=== PATIENT | male | born 1935 | race Caucasian/White ===

== ENCOUNTER 2018-11-07 16:00 | Emergency (ER) | payer MEDICARE, OTHER ==
--- NOTE | 2018-11-07 16:22 | EDM.PDOC ---
ED HPI GENERAL MEDICAL PROBLEM - General Chief Complaint: Lower Extremity Injury/Pain Stated Complaint: ANKLE INJURY Time Seen by Provider: 11/07/18 16:07 Source of Information: Reports: Patient History Limitations: Reports: No Limitations - History of Present Illness INITIAL COMMENTS - FREE TEXT/NARRATIVE: HISTORY AND PHYSICAL: History of present illness: Patient is an 83-year-old male presents to the ED today via EMS with concern of right ankle injury. Patient states the neighbors were out on the tractor and patient had a piece of equipment that was admitted way. Patient states he went to the equipment and was trying to move it and when he had picked up and lost his balance and twisted his right ankle. Patient states he did not completely fall to the ground and caught himself but does have right ankle injury and has not been able to walk on it. Patient states he called EMS for airway. Patient denies any loss of consciousness. Patient denies any other symptoms or concerns at this time. Patient denies any health history. Patient denies fever, chills, chest pain, shortness of breath, or cough. Denies headache, neck stiff ness, change in vision, syncope, or near syncope. Denies nausea, vomiting, abdominal pain, diarrhea, constipation, or dysuria. Has not noted any blood in urine or stool. Patient has been eating and drinking appropriately. Review of systems: As per history of present illness and below otherwise all systems reviewed and negative. Past medical history: As per history of present illness and as reviewed below otherwise noncontributory. Surgical history: As per history of present illness and as reviewed below otherwise noncontributory. Social history: See social history for further information Family history: As per history of present illness and as reviewed below otherwise noncontributory. Physical exam: General: Patient is alert, oriented, and in no acute distress. Patient sitting comfortably on exam table. HEENT: Atraumatic, normocephalic, pupils equal and reactive bilaterally, negative for conjunctival pallor or scleral icterus, mucous membranes moist, TMs normal bilaterally, throat clear, neck supple, nontender, trachea midline. No drooling or trismus noted. No meningeal signs. No hot potato voice noted. Lungs: Clear to auscultation, breath sounds equal bilaterally, chest nontender. Heart: S1S2, regular rate and rhythm without overt murmur Abdomen: Soft, nondistended, nontender. Negative for masses or hepatosplenomegaly. Negative for costovertebral tenderness. Pelvis: Stable nontender. Genitourinary: Deferred. Rectal: Deferred. Skin: Intact, warm, dry. No lesions or rashes noted. Extremities: Negative for cords or calf pain. Neurovascular unremarkable. DP/PT pulses intact bilaterally with capillary refill less than 2 seconds. Patient's right ankle is severely edematous and pain with range of motion. Patient does have full range of motion of the digits of the right lower extremity as well as the knee and hip. Patient full ROM of left lower extremity and bilateral upper extremities. No obvious deformities of the complete spine. Negative pain with palpation or point tenderness of the spinous processes. No step-offs or crepitus noted on palpation. Patient does have full range of motion of the spine without pain or difficulty. Neuro: Awake, alert, oriented. Cranial nerves II through XII unremarkable. Cerebellum unremarkable. Motor and sensory unremarkable throughout. Exam nonfocal. Notes: Dr. Montoya verbally involved in patient care. Discussed with patient the importance of proper ambulation with the ankle fracture. Patient states he has several walkers available to him at home and will use those at home but in the meantime would like to use crutches. Discussed the importance for follow-up with an orthopedic provider. Voices understanding and is agreeable to plan of care. Denies any further questions or concerns at this time. Diagnostics: CBC, CMP, UA, EKG, PT/INR, troponin, chest x-ray, ankle x-ray, tib/fib XR, foot XR Therapeutics: Posterior mold splint, crutches Prescription: Patient declines pain medications Impression: Distal fibula fracture, right Plan: 1. Rest, ice, elevate the affected extremity. You can apply ice 15 minutes on, 15 minutes off. Leave splint intact until follow up with orthopedics. 2. Tylenol and/or Ibuprofen as directed for pain management or discomfort. 3. Follow up with the Orthopedic provider as discussed. Call in the morning to make appointment. Return to the ED as needed and as discussed. Definitive disposition and diagnosis as appropriate pending reevaluation and review of above. Right Ankle Pain Score (Numeric/FACES): 3 - Related Data Allergies Allergy/AdvReac Type Severity Reaction Status Date / Time Sulfa (Sulfonamide Allergy Hives Verified 11/07/18 16:06 Antibiotics) Home Meds: Home Meds . [No Known Home Meds] 11/07/18 [History] Review of Systems - Review of Systems Review Of Systems: ROS reveals no pertinent complaints other than HPI. ED EXAM, GENERAL - Physical Exam Exam: See Below (See dictation) Course - Vital Signs Last Recorded V/S: Last Vital Signs Temp 36.6 C 11/07/18 16:07 Pulse 99 11/07/18 16:07 Resp 18 11/07/18 16:07 BP 159/104 H 11/07/18 16:07 Pulse Ox 98 11/07/18 16:07 Orthostatic Blood Pressure [ 167/83 Standing] Orthostatic Blood Pressure [ 155/133 Sitting] Orthostatic Blood Pressure [ 157/92 Supine] - Orders/Labs/Meds Orders: Active Orders 24 hr Category Date Time Status EKG Documentation Completion [RC] STAT Care 11/07/18 16:07 Active Orthostatic Vital Signs [RC] ASDIRECTED Care 11/07/18 16:08 Active UA RFX LUCIEN AND CULT IF INDIC [URIN] Stat Lab 11/07/18 16:07 Ordered DME for Discharge [COMM] Stat Oth 11/07/18 17:38 Ordered Labs: Laboratory Tests 11/07/18 11/07/18 11/07/18 Range/Units 16:20 16:20 16:20 WBC 7.71 (4.0-11.0) K/uL RBC 4.54 (4.50-5.90) M/uL Hgb 14.7 (13.0-17.0) g/dL Hct 42.1 (38.0-50.0) % MCV 92.7 (80.0-98.0) fL MCH 32.4 H (27.0-32.0) pg MCHC 34.9 (31.0-37.0) g/dL RDW Std Deviation 42.8 (28.0-62.0) fl RDW Coeff of Jacquelin 13 (11.0-15.0) % Plt Count 174 (150-400) K/uL MPV 9.70 (7.40-12.00) fL Neut % (Auto) 73.7 (48.0-80.0) % Lymph % (Auto) 18.0 (16.0-40.0) % Wayne % (Auto) 6.1 (0.0-15.0) % Eos % (Auto) 1.9 (0.0-7.0) % Baso % (Auto) 0.3 (0.0-1.5) % Neut # (Auto) 5.7 (1.4-5.7) K/uL Lymph # (Auto) 1.4 (0.6-2.4) K/uL Wayne # (Auto) 0.5 (0.0-0.8) K/uL Eos # (Auto) 0.2 (0.0-0.7) K/uL Baso # (Auto) 0.0 (0.0-0.1) K/uL Nucleated RBC % 0.0 /100WBC Nucleated RBCs # 0 K/uL INR 0.98 Sodium 141 (136-148) mmol/L Potassium 4.0 (3.5-5.1) mmol/L Chloride 105 (98-107) mmol/L Carbon Dioxide 23.4 (21.0-32.0) mmol/L BUN 22 H (7.0-18.0) mg/dL Creatinine 1.2 (0.8-1.3) mg/dL Est Cr Clr Drug Dosing 42.83 mL/min Estimated GFR (MDRD) 58.0 ml/min Glucose 143 H (74-106) mg/dL Calcium 9.1 (8.5-10.1) mg/dL Total Bilirubin 0.8 (0.2-1.0) mg/dL AST 37 (15-37) IU/L ALT 41 (14-63) IU/L Alkaline Phosphatase 109 (46-116) U/L Troponin I < 0.050 (0.000-0.056) ng/mL Total Protein 6.5 (6.4-8.2) g/dL Albumin 3.2 L (3.4-5.0) g/dL Globulin 3.3 (2.6-4.0) g/dL Albumin/Globulin Ratio 1.0 (0.9-1.6) Departure - Departure Time of Disposition: 18:06 Disposition: Home, Self-Care 01 Clinical Impression: Fracture of distal fibula Qualifiers: Encounter type: initial encounter Fracture type: closed Fracture morphology: unspecified fracture morphology Laterality: right Qualified Code(s): S82.831A - Other fracture of upper and lower end of right fibula, initial encounter for closed fracture - Discharge Information Instructions: Tibial and Fibular Fractures Referrals: PCP,Unknown [Primary Care Provider] - Forms: ED Department Discharge Additional Instructions: The following information is given to patients seen in the emergency department who are being discharged to home. This information is to outline your options for follow-up care. We provide all patients seen in our emergency department with a follow-up referral. The need for follow-up, as well as the timing and circumstances, are variable depending upon the specifics of your emergency department visit. If you don't have a primary care physician on staff, we will provide you with a referral. We always advise you to contact your personal physician following an emergency department visit to inform them of the circumstance of the visit and for follow-up with them and/or the need for any referrals to a consulting specialist. The emergency department will also refer you to a specialist when appropriate. This referral assures that you have the opportunity for follow-up care with a specialist. All of these measure are taken in an effort to provide you with optimal care, which includes your follow-up. Under all circumstances we always encourage you to contact your private physician who remains a resource for coordinating your care. When calling for follow-up care, please make the office aware that this follow-up is from your recent emergency room visit. If for any reason you are refused follow-up, please contact the [facility] Emergency Department at and asked to speak to the emergency department charge nurse. [facility] Primary Care [address] [place] [address] [facility] Specialty Care - Orthopedic Clinic Professional Building [address] [facility], [address] [place] [address] Dr Adams, Orthopedist [facility] [address] [place] [address] Dr Berry - Dr Loyola - Dr Baker [facility] at [facility] [address] [place] [address] [facility] [address] [place] [address] 1. Rest, ice, elevate the affected extremity. You can apply ice 15 minutes on, 15 minutes off. Leave splint intact until follow up with orthopedics. 2. Tylenol and/or Ibuprofen as directed for pain management or discomfort. 3. Follow up with the Orthopedic provider as discussed. Call in the morning to make appointment. Return to the ED as needed and as discussed. - My Orders Last 24 Hours: My Active Orders 11/07/18 16:07 EKG Documentation Completion [RC] STAT UA RFX LUCIEN AND CULT IF INDIC [URIN] Stat 11/07/18 16:08 Orthostatic Vital Signs [RC] ASDIRECTED 11/07/18 17:38 DME for Discharge [COMM] Stat - Assessment/Plan Last 24 Hours: My Active Orders 11/07/18 16:07 EKG Documentation Completion [RC] STAT UA RFX LUCIEN AND CULT IF INDIC [URIN] Stat 11/07/18 16:08 Orthostatic Vital Signs [RC] ASDIRECTED 11/07/18 17:38 DME for Discharge [COMM] Stat
[2018-11-07 17:02] LABS: CHLORIDE,CL 105 mmol/L (98-107); SODIUM,NA 141 mmol/L (136-148)
--- NOTE | 2018-11-07 17:44 | CR ---
INDICATION: Chest injury from fall TECHNIQUE: Chest radiograph 1 view COMPARISON: None FINDINGS: Moderate degradation of image quality noted due to body habitus. Mediastinum: The mediastinum is normal in appearance. The heart silhouette is normal in size and morphology. Lung: Both lungs are unremarkable in appearance. No sign of pleural effusion seen. No pneumothorax is identified. IMPRESSION: 1. No acute cardiopulmonary disease is seen. Dictated by: Balbir Deleon MD @ 11/07/2018 17:42:38 (Electronically Signed)
--- NOTE | 2018-11-07 17:50 | CR ---
INDICATION: Ankle injury from fall TECHNIQUE: Ankle radiograph 3 views right COMPARISON: None FINDINGS: Bone: There is a mildly displaced oblique fracture present in the lateral malleolus. Joint: Widening of the medial ankle mortise joint is noted measuring 7 mm. No significant ankle effusion is seen. Soft tissue: Moderate vascular soft tissue calcifications are noted. No radiopaque foreign bodies are seen. IMPRESSIONS: 1. There is a mildly displaced oblique fracture present in the lateral malleolus. 2. Widening of the medial ankle mortise joint is noted measuring 7 mm. Dictated by Balbir Deleon MD @ 11/07/2018 5:47:52 PM Dictated by: Balbir Deleon MD @ 11/07/2018 17:47:58 (Electronically Signed)
--- NOTE | 2018-11-07 17:52 | CR ---
INDICATION: Tibia injury from fall TECHNIQUE: Tibia-fibula radiograph 2 views right COMPARISON: None FINDINGS: Bone: There is a mildly displaced oblique fracture present in the lateral malleolus. The remainder of the visualized tibia and fibula are unremarkable. Joint: The visualized knee and ankle joints are unremarkable. No significant joint effusion is seen. Soft tissue: Unremarkable. No radiopaque foreign bodies are seen. IMPRESSION: 1. There is a mildly displaced oblique fracture present in the lateral malleolus. Dictated by Balbir Deleon MD @ 11/07/2018 5:50:27 PM Dictated by: Balbir Deleon MD @ 11/07/2018 17:50:34 (Electronically Signed)
--- NOTE | 2018-11-07 17:52 | CR ---
INDICATION: Foot injury from fall TECHNIQUE: Foot radiograph 2 views right COMPARISON: None FINDINGS: Bone: No acute fractures or aggressive bone lesions are identified in the foot. A fracture of the lateral malleolus is noted and described on ankle radiograph report. Joint: The visualized hindfoot, midfoot, and forefoot joints are unremarkable in appearance. No significant ankle effusion is seen. Soft tissue: Unremarkable. No radiopaque foreign bodies are seen. IMPRESSION: 1. No acute osseous injuries or abnormalities are noted. Dictated by: Balbir Deleon MD @ 11/07/2018 17:51:34 (Electronically Signed)
== END 2018-11-07 19:49 | disposition home or self-care (01) ==
LOC: MW.ED 16:00
DX: S82.831A Other fracture of upper and lower end of right fibula, initial encounter for closed fracture (principal); Z88.2 Allergy status to sulfonamides; X50.1XXA Overexertion from prolonged static or awkward postures, initial encounter
CPT/HCPCS: 36415; 71045; 71045-26; 73590-26-RT; 73590-RT; 73610-26-RT; 73610-RT; 73620-26-RT; 73620-RT; 80053; 84484; 85025; 85610; 93005; 99284-25

== ENCOUNTER 2024-04-22 12:37 | Inpatient (IN) | payer MEDICARE, OTHER ==
[2024-04-22] MEDS ORDERED: Sodium Chloride 0.9% 20 ML SDV IV PRN (12:43)
[2024-04-22] MEDS ORDERED: Sodium Chloride 0.9% 10 ML Syringe FLUSH PRN ×2 (12:43→12:44)
[2024-04-22] MEDS ORDERED: Sodium Chloride 0.9% 2.5 ML Syringe FLUSH PRN ×2 (12:43→12:44)
[2024-04-22] MEDS ORDERED: cefTRIAXone 1 GM Vial IV ONE (12:44)
[2024-04-22 13:12] LABS: BASOPHILS ABSOLUTE AUTO 0.01 K/uL (0.00-0.20); BASOPHILS PERCENT AUTO 0.1 % (0.0-1.0); HEMATOCRIT 51.1 % (42.0-52.0); HEMOGLOBIN 18.1 g/dL (14.0-18.0); IMMATURE GRAN ABSOLUTE AUTO 0.06 K/uL (0.00-0.05); IMMATURE GRAN PERCENT AUTO 0.4 % (0.0-0.4); LYMPHOCYTES ABSOLUTE AUTO 0.54 K/uL (1.00-4.80); LYMPHOCYTES PERCENT AUTO 3.7 % (24.0-44.0); MEAN CORPUSCULAR HEMOGLOBIN 31.3 pg (28.0-32.0); MEAN CORPUSCULAR HGB CONC 35.4 g/dL (32.0-36.0); MEAN CORPUSCULAR VOLUME 88.3 fL (83.0-99.0); MEAN PLATELET VOLUME 10.5 fL (9.4-12.4); MONOCYTES ABSOLUTE AUTO 0.89 K/uL (0.00-0.80); MONOCYTES PERCENT AUTO 6.2 % (0.0-8.0); NEUTROPHILS ABSOLUTE AUTO 12.94 K/uL (1.80-7.70); NEUTROPHILS PERCENT AUTO 89.6 % (41.0-71.0); PLATELET COUNT,PLT 182 K/uL (150-400); RED BLOOD CELL COUNT 5.79 M/uL (4.52-5.90); WHITE BLOOD CELL COUNT,WBC 14.44 K/uL (3.9-11.3)
[2024-04-22] MEDS: Sodium Chloride 0.9% 1,000 ML IV ONE ×2 (13:12)
[2024-04-22] MEDS: cefTRIAXone 1 GM in Sodium Chloride 0.9% 50 ML IV ONE (13:13)
[2024-04-22] MEDS: Diphtheria,Pertussis(Acell),Tetanus Vaccine 0.5 ML Syringe IM ONE (13:13)
[2024-04-22 14:07] LABS: INR 1.12 (0.86-1.11); PTT,PARTIAL THROMBOPLSTIN TIME 27.1 SEC (23.9-30.7)
[2024-04-22 14:25] LABS: LACTIC ACID 2.6 mmol/L (0.4-2.0)
[2024-04-22 14:30] LABS: ETHANOL BLOOD MEDICAL < 3.0 mg/dL; TSH ULTRASENSITIVE 2.21 uIU/mL (0.36-3.74)
[2024-04-22 14:34] LABS: A/G RATIO 0.7 (0.9-1.6); ALBUMIN 3.2 g/dL (3.4-5.0); CALCIUM 9.7 mg/dL (8.5-10.1); CARBON DIOXIDE,CO2 24.4 mmol/L (21.0-32.0); CREATININE 1.2 mg/dL (0.8-1.3); EST CRCL DRUG DOSING (CG) 37.73 mL/min; MAGNESIUM 2.6 mg/dL (1.8-2.4); PROTEIN TOTAL,TP 7.5 g/dL (6.4-8.2)
[2024-04-22] MEDS: VANCOmycin 1.5 GM in Sodium Chloride 0.9% 250 ML IV ONE (14:40)
[2024-04-22 16:45] LABS: APPEARANCE,URINE SLT CLOUDY; BILIRUBIN,URINE NEGATIVE (NEGATIVE); COLOR,URINE DARK YELLOW; GLUCOSE,URINE NEGATIVE (NEGATIVE); KETONES,URINE MODERATE mg/dL (NEGATIVE); PROTEIN,URINE 30 mg/dL (NEGATIVE)
[2024-04-22 16:46] LABS: BACTERIA,URINE RARE (NEGATIVE); EPITHELIAL CELLS,URINE RARE (NONE-FEW); LEUKOCYTE ESTERASE,URINE NEGATIVE (NEGATIVE); NITRITE,URINE NEGATIVE (NEGATIVE); OCCULT BLOOD,URINE MODERATE (NEGATIVE); SQUAMOUS EPITHELIAL CELLS,UR RARE; UROBILINOGEN,URINE 0.2 EU/dL (<2.0); WBC,URINE 0-1 (0-5/HPF)
[2024-04-22 16:47] LABS: AMORPHOUS SEDIMENT,URINE LIGHT (NEGATIVE); MUCUS,URINE MODERATE (NONE-MOD)
[2024-04-22] MEDS ORDERED: Ondansetron 4 MG/2 ML SDV IVPUSH PRN (17:57)
[2024-04-22] MEDS ORDERED: Melatonin 3 MG Tab PO PRN (17:57)
[2024-04-22] MEDS ORDERED: Acetaminophen 325 MG Tab PO PRN (17:57)
[2024-04-22] MEDS ORDERED: Acetaminophen 650 MG Supp RECTAL PRN (17:57)
[2024-04-22] MEDS ORDERED: Polyethylene Glycol 3350 Powder 17 GM Packet PO PRN (17:57)
[2024-04-22] MEDS: Lactated Ringers 1,000 ML IV SCH (19:36)
[2024-04-22] MEDS: Pantoprazole 40 MG in Sodium Chloride 0.9% 10 ML IVPUSH SCH (19:36)
[2024-04-23] MEDS: Lactated Ringers 1,000 ML IV SCH (04:32)
[2024-04-23 06:24] LABS: BASOPHILS ABSOLUTE AUTO 0.01 K/uL (0.00-0.20); BASOPHILS PERCENT AUTO 0.1 % (0.0-1.0); EOSINOPHILS ABSOLUTE AUTO 0.01 K/uL (0.00-0.45); EOSINOPHILS PERCENT AUTO 0.1 % (0.0-6.0); HEMOGLOBIN 15.5 g/dL (14.0-18.0); IMMATURE GRAN ABSOLUTE AUTO 0.04 K/uL (0.00-0.05); IMMATURE GRAN PERCENT AUTO 0.4 % (0.0-0.4); LYMPHOCYTES ABSOLUTE AUTO 0.89 K/uL (1.00-4.80); LYMPHOCYTES PERCENT AUTO 9.2 % (24.0-44.0); MEAN CORPUSCULAR HGB CONC 35.2 g/dL (32.0-36.0); MEAN CORPUSCULAR VOLUME 90.7 fL (83.0-99.0); MONOCYTES ABSOLUTE AUTO 1.17 K/uL (0.00-0.80); MONOCYTES PERCENT AUTO 12.1 % (0.0-8.0); NEUTROPHILS ABSOLUTE AUTO 7.52 K/uL (1.80-7.70); NEUTROPHILS PERCENT AUTO 78.1 % (41.0-71.0); PLATELET COUNT,PLT 148 K/uL (150-400); RED BLOOD CELL COUNT 4.85 M/uL (4.52-5.90); WHITE BLOOD CELL COUNT,WBC 9.64 K/uL (3.9-11.3)
[2024-04-23 06:57] LABS: CALCIUM 8.9 mg/dL (8.5-10.1); CARBON DIOXIDE,CO2 26.6 mmol/L (21.0-32.0); CREATININE 1.1 mg/dL (0.8-1.3); EST CRCL DRUG DOSING (CG) 41.16 mL/min; MAGNESIUM 2.4 mg/dL (1.8-2.4); PHOSPHORUS 2.6 mg/dL (2.6-4.7); POTASSIUM,K 4.1 mmol/L (3.5-5.1)
[2024-04-23] MEDS: Piperacillin/Tazobactam 4.5 GM in Sodium Chloride 0.9% 100 ML IV SCH (07:33)
[2024-04-23] MEDS ORDERED: cefTRIAXone 1 GM in Sodium Chloride 0.9% 50 ML IV SCH (09:00)
[2024-04-23] MEDS: VANCOmycin 1.5 GM in Sodium Chloride 0.9% 250 ML IV SCH (13:52)
[2024-04-24 09:06] LABS: BASOPHILS ABSOLUTE AUTO 0.02 K/uL (0.00-0.20); BASOPHILS PERCENT AUTO 0.3 % (0.0-1.0); EOSINOPHILS ABSOLUTE AUTO 0.02 K/uL (0.00-0.45); EOSINOPHILS PERCENT AUTO 0.3 % (0.0-6.0); HEMOGLOBIN 14.6 g/dL (14.0-18.0); IMMATURE GRAN ABSOLUTE AUTO 0.05 K/uL (0.00-0.05); IMMATURE GRAN PERCENT AUTO 0.7 % (0.0-0.4); LYMPHOCYTES ABSOLUTE AUTO 0.89 K/uL (1.00-4.80); LYMPHOCYTES PERCENT AUTO 12.3 % (24.0-44.0); MEAN CORPUSCULAR HEMOGLOBIN 31.5 pg (28.0-32.0); MEAN CORPUSCULAR HGB CONC 34.8 g/dL (32.0-36.0); MEAN CORPUSCULAR VOLUME 90.7 fL (83.0-99.0); MONOCYTES ABSOLUTE AUTO 0.66 K/uL (0.00-0.80); MONOCYTES PERCENT AUTO 9.1 % (0.0-8.0); NEUTROPHILS ABSOLUTE AUTO 5.61 K/uL (1.80-7.70); NEUTROPHILS PERCENT AUTO 77.3 % (41.0-71.0); PLATELET COUNT,PLT 144 K/uL (150-400); RED BLOOD CELL COUNT 4.63 M/uL (4.52-5.90); WHITE BLOOD CELL COUNT,WBC 7.25 K/uL (3.9-11.3)
[2024-04-24 09:41] LABS: A/G RATIO 0.7 (0.9-1.6); ALBUMIN 2.5 g/dL (3.4-5.0); BILIRUBIN TOTAL 1.6 mg/dL (0.2-1.0); CARBON DIOXIDE,CO2 28.6 mmol/L (21.0-32.0); CREATININE 1.1 mg/dL (0.8-1.3); EST CRCL DRUG DOSING (CG) 41.16 mL/min; POTASSIUM,K 3.5 mmol/L (3.5-5.1); PROTEIN TOTAL,TP 6.3 g/dL (6.4-8.2)
[2024-04-24] MEDS: Potassium Chloride 20 MEQ Tab.ER PO ONE (10:36)
[2024-04-24] MEDS: Sodium Chloride 0.9% 1,000 ML IV SCH (11:04)
[2024-04-24] MEDS: Metoprolol Tartrate 5 MG/5 ML SDV IVPUSH PRN (16:20)
[2024-04-24] MEDS ORDERED: 50% Dextrose in Water 50 ML Syringe IVPUSH PRN (18:42)
[2024-04-24] MEDS ORDERED: Glucagon,Human Recombinant 1 MG Vial IM PRN (18:42)
[2024-04-24 19:03] LABS: HEMOGLOBIN A1C 6.3 %
[2024-04-24] MEDS: Insulin Aspart 100 Units/ML 3 ML Pen SUBCUT SCH (20:02)
[2024-04-25 05:44] LABS: BASOPHILS ABSOLUTE AUTO 0.01 K/uL (0.00-0.20); BASOPHILS PERCENT AUTO 0.2 % (0.0-1.0); EOSINOPHILS ABSOLUTE AUTO 0.05 K/uL (0.00-0.45); EOSINOPHILS PERCENT AUTO 0.9 % (0.0-6.0); HEMATOCRIT 35.8 % (42.0-52.0); HEMOGLOBIN 12.4 g/dL (14.0-18.0); IMMATURE GRAN ABSOLUTE AUTO 0.11 K/uL (0.00-0.05); IMMATURE GRAN PERCENT AUTO 1.9 % (0.0-0.4); LYMPHOCYTES ABSOLUTE AUTO 1.07 K/uL (1.00-4.80); LYMPHOCYTES PERCENT AUTO 18.8 % (24.0-44.0); MEAN CORPUSCULAR HEMOGLOBIN 31.3 pg (28.0-32.0); MEAN CORPUSCULAR HGB CONC 34.6 g/dL (32.0-36.0); MEAN CORPUSCULAR VOLUME 90.4 fL (83.0-99.0); MEAN PLATELET VOLUME 9.6 fL (9.4-12.4); MONOCYTES ABSOLUTE AUTO 0.66 K/uL (0.00-0.80); MONOCYTES PERCENT AUTO 11.6 % (0.0-8.0); NEUTROPHILS ABSOLUTE AUTO 3.78 K/uL (1.80-7.70); NEUTROPHILS PERCENT AUTO 66.6 % (41.0-71.0); PLATELET COUNT,PLT 127 K/uL (150-400); RED BLOOD CELL COUNT 3.96 M/uL (4.52-5.90); WHITE BLOOD CELL COUNT,WBC 5.68 K/uL (3.9-11.3)
[2024-04-25 06:37] LABS: A/G RATIO 0.7 (0.9-1.6); ALBUMIN 2.1 g/dL (3.4-5.0); CALCIUM 8.2 mg/dL (8.5-10.1); CARBON DIOXIDE,CO2 24.7 mmol/L (21.0-32.0); EST CRCL DRUG DOSING (CG) 45.27 mL/min; POTASSIUM,K 3.7 mmol/L (3.5-5.1); PROTEIN TOTAL,TP 5.3 g/dL (6.4-8.2)
[2024-04-25] MEDS: VANCOmycin 1 GM in Sodium Chloride 0.9% 250 ML IV SCH (13:56)
[2024-04-26 05:57] LABS: BASOPHILS ABSOLUTE AUTO 0.02 K/uL (0.00-0.20); BASOPHILS PERCENT AUTO 0.3 % (0.0-1.0); EOSINOPHILS ABSOLUTE AUTO 0.17 K/uL (0.00-0.45); EOSINOPHILS PERCENT AUTO 2.6 % (0.0-6.0); HEMATOCRIT 34.8 % (42.0-52.0); HEMOGLOBIN 12.3 g/dL (14.0-18.0); IMMATURE GRAN ABSOLUTE AUTO 0.25 K/uL (0.00-0.05); IMMATURE GRAN PERCENT AUTO 3.8 % (0.0-0.4); LYMPHOCYTES ABSOLUTE AUTO 1.41 K/uL (1.00-4.80); LYMPHOCYTES PERCENT AUTO 21.2 % (24.0-44.0); MEAN CORPUSCULAR HEMOGLOBIN 31.8 pg (28.0-32.0); MEAN CORPUSCULAR HGB CONC 35.3 g/dL (32.0-36.0); MEAN CORPUSCULAR VOLUME 89.9 fL (83.0-99.0); MEAN PLATELET VOLUME 9.9 fL (9.4-12.4); MONOCYTES ABSOLUTE AUTO 0.53 K/uL (0.00-0.80); NEUTROPHILS ABSOLUTE AUTO 4.27 K/uL (1.80-7.70); NEUTROPHILS PERCENT AUTO 64.1 % (41.0-71.0); PLATELET COUNT,PLT 138 K/uL (150-400); RED BLOOD CELL COUNT 3.87 M/uL (4.52-5.90); WHITE BLOOD CELL COUNT,WBC 6.65 K/uL (3.9-11.3)
[2024-04-26 06:23] LABS: A/G RATIO 0.6 (0.9-1.6); BILIRUBIN TOTAL 0.9 mg/dL (0.2-1.0); CALCIUM 8.2 mg/dL (8.5-10.1); CARBON DIOXIDE,CO2 24.3 mmol/L (21.0-32.0); EST CRCL DRUG DOSING (CG) 44.42 mL/min; POTASSIUM,K 3.2 mmol/L (3.5-5.1); PROTEIN TOTAL,TP 5.2 g/dL (6.4-8.2)
[2024-04-26] MEDS: Potassium Chloride 20 MEQ Tab.ER PO ONE (08:48)
[2024-04-27 06:12] LABS: BASOPHILS ABSOLUTE AUTO 0.02 K/uL (0.00-0.20); BASOPHILS PERCENT AUTO 0.3 % (0.0-1.0); EOSINOPHILS PERCENT AUTO 4.1 % (0.0-6.0); HEMATOCRIT 35.7 % (42.0-52.0); HEMOGLOBIN 12.5 g/dL (14.0-18.0); IMMATURE GRAN PERCENT AUTO 4.1 % (0.0-0.4); LYMPHOCYTES ABSOLUTE AUTO 1.46 K/uL (1.00-4.80); LYMPHOCYTES PERCENT AUTO 19.8 % (24.0-44.0); MEAN CORPUSCULAR HEMOGLOBIN 31.4 pg (28.0-32.0); MEAN CORPUSCULAR VOLUME 89.7 fL (83.0-99.0); MEAN PLATELET VOLUME 10.2 fL (9.4-12.4); MONOCYTES ABSOLUTE AUTO 0.56 K/uL (0.00-0.80); MONOCYTES PERCENT AUTO 7.6 % (0.0-8.0); NEUTROPHILS ABSOLUTE AUTO 4.72 K/uL (1.80-7.70); NEUTROPHILS PERCENT AUTO 64.1 % (41.0-71.0); PLATELET COUNT,PLT 141 K/uL (150-400); RED BLOOD CELL COUNT 3.98 M/uL (4.52-5.90); WHITE BLOOD CELL COUNT,WBC 7.36 K/uL (3.9-11.3)
[2024-04-27 06:38] LABS: A/G RATIO 0.6 (0.9-1.6); ALBUMIN 2.1 g/dL (3.4-5.0); BILIRUBIN TOTAL 1.2 mg/dL (0.2-1.0); CALCIUM 8.5 mg/dL (8.5-10.1); CARBON DIOXIDE,CO2 25.7 mmol/L (21.0-32.0); EST CRCL DRUG DOSING (CG) 44.42 mL/min; POTASSIUM,K 3.3 mmol/L (3.5-5.1); PROTEIN TOTAL,TP 5.4 g/dL (6.4-8.2)
[2024-04-28 08:25] LABS: BASOPHILS ABSOLUTE AUTO 0.02 K/uL (0.00-0.20); BASOPHILS PERCENT AUTO 0.2 % (0.0-1.0); EOSINOPHILS ABSOLUTE AUTO 0.33 K/uL (0.00-0.45); HEMOGLOBIN 12.4 g/dL (14.0-18.0); IMMATURE GRAN ABSOLUTE AUTO 0.35 K/uL (0.00-0.05); IMMATURE GRAN PERCENT AUTO 4.3 % (0.0-0.4); MEAN CORPUSCULAR HEMOGLOBIN 31.4 pg (28.0-32.0); MEAN CORPUSCULAR HGB CONC 35.4 g/dL (32.0-36.0); MEAN CORPUSCULAR VOLUME 88.6 fL (83.0-99.0); MEAN PLATELET VOLUME 10.5 fL (9.4-12.4); MONOCYTES ABSOLUTE AUTO 0.61 K/uL (0.00-0.80); MONOCYTES PERCENT AUTO 7.5 % (0.0-8.0); NEUTROPHILS ABSOLUTE AUTO 5.54 K/uL (1.80-7.70); PLATELET COUNT,PLT 167 K/uL (150-400); RED BLOOD CELL COUNT 3.95 M/uL (4.52-5.90); WHITE BLOOD CELL COUNT,WBC 8.15 K/uL (3.9-11.3)
[2024-04-28 08:37] LABS: A/G RATIO 0.6 (0.9-1.6); ALBUMIN 2.1 g/dL (3.4-5.0); BILIRUBIN TOTAL 1.3 mg/dL (0.2-1.0); CALCIUM 8.4 mg/dL (8.5-10.1); CARBON DIOXIDE,CO2 25.8 mmol/L (21.0-32.0); EST CRCL DRUG DOSING (CG) 44.42 mL/min; POTASSIUM,K 3.3 mmol/L (3.5-5.1); PROTEIN TOTAL,TP 5.5 g/dL (6.4-8.2)
[2024-04-28] MEDS: Potassium Chloride 20 MEQ Tab.ER PO ONE ×2 (09:31→12:40)
[2024-04-28] MEDS ORDERED: Albuterol/Ipratropium 3.0-0.5 MG/3 ML Neb Soln NEB PRN (19:52)
[2024-04-29 06:03] LABS: BASOPHILS ABSOLUTE AUTO 0.03 K/uL (0.00-0.20); BASOPHILS PERCENT AUTO 0.3 % (0.0-1.0); EOSINOPHILS ABSOLUTE AUTO 0.29 K/uL (0.00-0.45); HEMATOCRIT 35.1 % (42.0-52.0); HEMOGLOBIN 12.4 g/dL (14.0-18.0); IMMATURE GRAN ABSOLUTE AUTO 0.29 K/uL (0.00-0.05); LYMPHOCYTES ABSOLUTE AUTO 1.44 K/uL (1.00-4.80); LYMPHOCYTES PERCENT AUTO 14.9 % (24.0-44.0); MEAN CORPUSCULAR HEMOGLOBIN 31.2 pg (28.0-32.0); MEAN CORPUSCULAR HGB CONC 35.3 g/dL (32.0-36.0); MEAN CORPUSCULAR VOLUME 88.2 fL (83.0-99.0); MEAN PLATELET VOLUME 9.5 fL (9.4-12.4); MONOCYTES ABSOLUTE AUTO 0.83 K/uL (0.00-0.80); MONOCYTES PERCENT AUTO 8.6 % (0.0-8.0); NEUTROPHILS ABSOLUTE AUTO 6.81 K/uL (1.80-7.70); NEUTROPHILS PERCENT AUTO 70.2 % (41.0-71.0); PLATELET COUNT,PLT 183 K/uL (150-400); RED BLOOD CELL COUNT 3.98 M/uL (4.52-5.90); WHITE BLOOD CELL COUNT,WBC 9.69 K/uL (3.9-11.3)
[2024-04-29 06:45] LABS: A/G RATIO 0.6 (0.9-1.6); ALBUMIN 2.1 g/dL (3.4-5.0); BILIRUBIN TOTAL 1.1 mg/dL (0.2-1.0); CALCIUM 8.5 mg/dL (8.5-10.1); CARBON DIOXIDE,CO2 25.8 mmol/L (21.0-32.0); EST CRCL DRUG DOSING (CG) 44.42 mL/min; POTASSIUM,K 3.8 mmol/L (3.5-5.1); PROTEIN TOTAL,TP 5.8 g/dL (6.4-8.2)
[2024-04-29] MEDS: Loperamide 2 MG Cap PO SCH (12:43)
[2024-04-29] MEDS: Bacitracin Oint 1 GM U/D Packet TOP SCH (12:44)
[2024-04-29] MEDS: Enoxaparin 40 MG/0.4 ML Syringe SUBCUT SCH (20:13)
[2024-04-30 05:53] LABS: BASOPHILS ABSOLUTE AUTO 0.03 K/uL (0.00-0.20); BASOPHILS PERCENT AUTO 0.3 % (0.0-1.0); EOSINOPHILS ABSOLUTE AUTO 0.22 K/uL (0.00-0.45); EOSINOPHILS PERCENT AUTO 2.1 % (0.0-6.0); HEMATOCRIT 36.4 % (42.0-52.0); HEMOGLOBIN 12.7 g/dL (14.0-18.0); IMMATURE GRAN ABSOLUTE AUTO 0.28 K/uL (0.00-0.05); IMMATURE GRAN PERCENT AUTO 2.7 % (0.0-0.4); LYMPHOCYTES ABSOLUTE AUTO 1.61 K/uL (1.00-4.80); LYMPHOCYTES PERCENT AUTO 15.5 % (24.0-44.0); MEAN CORPUSCULAR HEMOGLOBIN 31.3 pg (28.0-32.0); MEAN CORPUSCULAR HGB CONC 34.9 g/dL (32.0-36.0); MEAN CORPUSCULAR VOLUME 89.7 fL (83.0-99.0); MEAN PLATELET VOLUME 9.8 fL (9.4-12.4); MONOCYTES ABSOLUTE AUTO 0.85 K/uL (0.00-0.80); MONOCYTES PERCENT AUTO 8.2 % (0.0-8.0); NEUTROPHILS ABSOLUTE AUTO 7.43 K/uL (1.80-7.70); NEUTROPHILS PERCENT AUTO 71.2 % (41.0-71.0); PLATELET COUNT,PLT 176 K/uL (150-400); RED BLOOD CELL COUNT 4.06 M/uL (4.52-5.90); WHITE BLOOD CELL COUNT,WBC 10.42 K/uL (3.9-11.3)
[2024-04-30 06:17] LABS: A/G RATIO 0.6 (0.9-1.6); ALBUMIN 2.2 g/dL (3.4-5.0); BILIRUBIN TOTAL 0.9 mg/dL (0.2-1.0); CALCIUM 8.6 mg/dL (8.5-10.1); CARBON DIOXIDE,CO2 25.1 mmol/L (21.0-32.0); EST CRCL DRUG DOSING (CG) 44.42 mL/min; POTASSIUM,K 3.8 mmol/L (3.5-5.1); PROTEIN TOTAL,TP 5.9 g/dL (6.4-8.2)
[2024-04-30] MEDS ORDERED: Loperamide 2 MG Cap PO PRN (09:58)
[2024-05-01 05:50] LABS: BASOPHILS ABSOLUTE AUTO 0.02 K/uL (0.00-0.20); BASOPHILS PERCENT AUTO 0.2 % (0.0-1.0); EOSINOPHILS ABSOLUTE AUTO 0.23 K/uL (0.00-0.45); EOSINOPHILS PERCENT AUTO 1.9 % (0.0-6.0); HEMATOCRIT 36.2 % (42.0-52.0); HEMOGLOBIN 12.4 g/dL (14.0-18.0); IMMATURE GRAN ABSOLUTE AUTO 0.17 K/uL (0.00-0.05); IMMATURE GRAN PERCENT AUTO 1.4 % (0.0-0.4); LYMPHOCYTES PERCENT AUTO 12.9 % (24.0-44.0); MEAN CORPUSCULAR HEMOGLOBIN 30.8 pg (28.0-32.0); MEAN CORPUSCULAR HGB CONC 34.3 g/dL (32.0-36.0); MEAN CORPUSCULAR VOLUME 89.8 fL (83.0-99.0); MEAN PLATELET VOLUME 9.9 fL (9.4-12.4); MONOCYTES ABSOLUTE AUTO 1.06 K/uL (0.00-0.80); MONOCYTES PERCENT AUTO 8.5 % (0.0-8.0); NEUTROPHILS ABSOLUTE AUTO 9.33 K/uL (1.80-7.70); NEUTROPHILS PERCENT AUTO 75.1 % (41.0-71.0); PLATELET COUNT,PLT 206 K/uL (150-400); RED BLOOD CELL COUNT 4.03 M/uL (4.52-5.90); WHITE BLOOD CELL COUNT,WBC 12.41 K/uL (3.9-11.3)
[2024-05-01 06:18] LABS: A/G RATIO 0.5 (0.9-1.6); ALBUMIN 2.1 g/dL (3.4-5.0); CALCIUM 8.7 mg/dL (8.5-10.1); CARBON DIOXIDE,CO2 26.8 mmol/L (21.0-32.0); CREATININE 1.1 mg/dL (0.8-1.3); EST CRCL DRUG DOSING (CG) 40.38 mL/min; POTASSIUM,K 3.9 mmol/L (3.5-5.1); PROTEIN TOTAL,TP 6.1 g/dL (6.4-8.2)
[2024-05-01] MEDS: Loperamide 2 MG Cap PO SCH (10:16)
[2024-05-01] MEDS: Bacitracin Oint 1 GM U/D Packet TOP PRN (10:17)
== END 2024-05-04 11:21 | DRG 558 ==
LOC: MW.ED 12:37 → MW.MS 17:24
PROVIDERS: ADMIT Family Medicine; ATTEND Family Medicine
DX: M62.82 Rhabdomyolysis (principal); E86.0 Dehydration; Z88.8 Allergy status to other drugs, medicaments and biological substances; Z66 Do not resuscitate; L98.9 Disorder of the skin and subcutaneous tissue, unspecified; T14.8XXA Other injury of unspecified body region, initial encounter; W19.XXXA Unspecified fall, initial encounter; Z88.2 Allergy status to sulfonamides
CPT/HCPCS: 36415; 70450; 71250; 72125; 73562 ×2; 74176; 80053; 80307; 81001; 82550; 83605; 83690; 83735; 83880; 84443; 84484 ×2; 85025; 85610; 85730; 87040 ×2; 87077 ×2; 87086; 87186 ×2; 90471; 90715; 96365; 96366; 96367; 99285; J0696; J3371; J3490; J7030 ×2; J7050; 80048; 80202; 82947; 83036; 84100; 93005; 97116-GP; 97162-GP; 97164-GP; 97165-GO; 97168-GO; 97530-GP; 99222; 99231; 99232; 99238; 99284; A9270-GY; J1650; J1815-GY; J2470; J2543; J7120

== ENCOUNTER 2024-05-12 22:15 | Inpatient (IN) | payer MEDICARE, OTHER ==
[2024-05-12] MEDS ORDERED: Sodium Chloride 0.9% 10 ML Syringe FLUSH PRN (22:32)
[2024-05-12] MEDS ORDERED: Sodium Chloride 0.9% 2.5 ML Syringe FLUSH PRN (22:32)
[2024-05-12 22:41] LABS: BASOPHILS ABSOLUTE AUTO 0.01 K/uL (0.00-0.20); BASOPHILS PERCENT AUTO 0.1 % (0.0-1.0); EOSINOPHILS ABSOLUTE AUTO 0.01 K/uL (0.00-0.45); EOSINOPHILS PERCENT AUTO 0.1 % (0.0-6.0); HEMATOCRIT 44.5 % (42.0-52.0); HEMOGLOBIN 15.5 g/dL (14.0-18.0); IMMATURE GRAN ABSOLUTE AUTO 0.02 K/uL (0.00-0.05); IMMATURE GRAN PERCENT AUTO 0.2 % (0.0-0.4); LYMPHOCYTES ABSOLUTE AUTO 0.65 K/uL (1.00-4.80); LYMPHOCYTES PERCENT AUTO 7.1 % (24.0-44.0); MEAN CORPUSCULAR HEMOGLOBIN 31.7 pg (28.0-32.0); MEAN CORPUSCULAR HGB CONC 34.8 g/dL (32.0-36.0); MEAN PLATELET VOLUME 9.1 fL (9.4-12.4); MONOCYTES ABSOLUTE AUTO 0.52 K/uL (0.00-0.80); MONOCYTES PERCENT AUTO 5.7 % (0.0-8.0); NEUTROPHILS ABSOLUTE AUTO 7.91 K/uL (1.80-7.70); NEUTROPHILS PERCENT AUTO 86.8 % (41.0-71.0); PLATELET COUNT,PLT 296 K/uL (150-400); RED BLOOD CELL COUNT 4.89 M/uL (4.52-5.90); WHITE BLOOD CELL COUNT,WBC 9.12 K/uL (3.9-11.3)
[2024-05-12 22:58] LABS: BLOOD UREA NITROGEN,BUN 31 mg/dL (7.0-18.0); CALCIUM 9.3 mg/dL (8.5-10.1); CARBON DIOXIDE,CO2 24.1 mmol/L (21.0-32.0); CHLORIDE,CL 98 mmol/L (98-107); CREATININE 1.7 mg/dL (0.8-1.3); GLUCOSE RANDOM 221 mg/dL (74-106); POTASSIUM,K 4.4 mmol/L (3.5-5.1); PRO B-TYPE NATRIUR PEPT,BNPPRO 136 pg/mL (0-450); SODIUM,NA 139 mmol/L (136-148)
[2024-05-12 23:03] LABS: ESTIMATED GFR 38 mL/min (>60)
[2024-05-12] MEDS: Sodium Chloride 0.9% 1,000 ML IV ONE (23:15)
[2024-05-12] MEDS: Piperacillin/Tazobactam 4.5 GM in Sodium Chloride 0.9% 100 ML IV ONE (23:22)
[2024-05-12 23:23] LABS: A/G RATIO 0.6 (0.9-1.6); BILIRUBIN DIRECT 0.3 mg/dL (0.0-0.5); BILIRUBIN INDIRECT 1.1; BILIRUBIN TOTAL 1.4 mg/dL (0.2-1.0)
[2024-05-12] MEDS: Ondansetron 4 MG/2 ML SDV IVPUSH ONE (23:53)
[2024-05-13] MEDS: Sodium Chloride 0.9% 1,000 ML IV SCH ×3 (00:01→13:49)
[2024-05-13] MEDS: Albuterol/Ipratropium 3.0-0.5 MG/3 ML Neb Soln NEB ONE (00:02)
[2024-05-13] MEDS: VANCOmycin 1.5 GM in Sodium Chloride 0.9% 250 ML IV ONE (00:28)
[2024-05-13 00:32] LABS: APPEARANCE,URINE CLEAR; BILIRUBIN,URINE NEGATIVE (NEGATIVE); COLOR,URINE YELLOW; GLUCOSE,URINE NEGATIVE (NEGATIVE); KETONES,URINE NEGATIVE (NEGATIVE); LEUKOCYTE ESTERASE,URINE NEGATIVE (NEGATIVE); NITRITE,URINE NEGATIVE (NEGATIVE); OCCULT BLOOD,URINE TRACE-INTACT (NEGATIVE); PROTEIN,URINE TRACE mg/dL (NEGATIVE); UROBILINOGEN,URINE 0.2 EU/dL (<2.0)
[2024-05-13 00:43] LABS: BACTERIA,URINE FEW (NEGATIVE); EPITHELIAL CELLS,URINE OCCASIONAL (NONE-FEW); HYALINE CASTS,URINE 0-2 (0-2/LPF)
[2024-05-13] MEDS: Sodium Chloride 0.9% 1,000 ML IV ONE (03:19)
[2024-05-13] MEDS ORDERED: Acetaminophen 325 MG Tab PO PRN (03:29)
[2024-05-13] MEDS: Azithromycin 500 MG in Sodium Chloride 0.9% 250 ML IV SCH (03:57)
[2024-05-13] MEDS ORDERED: Piperacillin/Tazobactam 4.5 GM in Sodium Chloride 0.9% 100 ML IV SCH (04:00)
[2024-05-13] MEDS ORDERED: Piperacillin/Tazobactam 3.375 GM in Sodium Chloride 0.9% 100 ML IV SCH (06:00)
[2024-05-13] MEDS: Albuterol/Ipratropium 3.0-0.5 MG/3 ML Neb Soln NEB SCH (06:43)
[2024-05-13] MEDS: Piperacillin/Tazobactam 4.5 GM in Sodium Chloride 0.9% 100 ML IV SCH (06:45)
[2024-05-13 07:28] LABS: CORONAVIRUS COVID-19 NAA NEGATIVE (NEGATIVE); INFLUENZA A NAA NEGATIVE (NEGATIVE); INFLUENZA B NAA NEGATIVE (NEGATIVE)
[2024-05-13 07:52] LABS: HEMATOCRIT 36.3 % (42.0-52.0); HEMOGLOBIN 12.3 g/dL (14.0-18.0); MEAN CORPUSCULAR HEMOGLOBIN 31.7 pg (28.0-32.0); MEAN CORPUSCULAR HGB CONC 33.9 g/dL (32.0-36.0); MEAN CORPUSCULAR VOLUME 93.6 fL (83.0-99.0); MEAN PLATELET VOLUME 9.1 fL (9.4-12.4); PLATELET COUNT,PLT 206 K/uL (150-400); RED BLOOD CELL COUNT 3.88 M/uL (4.52-5.90); WHITE BLOOD CELL COUNT,WBC 11.29 K/uL (3.9-11.3)
[2024-05-13 08:10] LABS: CALCIUM 8.2 mg/dL (8.5-10.1); CARBON DIOXIDE,CO2 22.3 mmol/L (21.0-32.0); CREATININE 1.8 mg/dL (0.8-1.3); EST CRCL DRUG DOSING (CG) 21.91 mL/min
[2024-05-13 08:41] LABS: LYMPHOCYTES ABSOLUTE MAN 1.13 K/uL (1.00-4.80); LYMPHOCYTES PERCENT MAN 10 % (24-44); MONOCYTES ABSOLUTE MAN 0.68 K/uL (0.00-0.80); MONOCYTES PERCENT MAN 6 % (0-8)
[2024-05-13 08:42] LABS: BAND ABSOLUTE MAN 1.47; BAND PERCENT MAN 13 %; EOSINOPHILS ABSOLUTE MAN 0.23 K/uL (0.00-0.45); EOSINOPHILS PERCENT MAN 2 % (0-6); SEG NEUTROPHILS ABSOLUTE MAN 7.79 K/uL (1.80-7.70); SEG NEUTROPHILS PERCENT MAN 69 % (41-71)
[2024-05-13] MEDS: Heparin Sodium 5,000 Units/ML Vial SUBCUT SCH (11:36)
[2024-05-13] MEDS: VANCOmycin 1 GM in Sodium Chloride 0.9% 250 ML IV SCH (22:24)
[2024-05-14 02:11] LABS: HEMATOCRIT 30.3 % (42.0-52.0); HEMOGLOBIN 10.5 g/dL (14.0-18.0); MEAN CORPUSCULAR HEMOGLOBIN 31.8 pg (28.0-32.0); MEAN CORPUSCULAR HGB CONC 34.7 g/dL (32.0-36.0); MEAN CORPUSCULAR VOLUME 91.8 fL (83.0-99.0); MEAN PLATELET VOLUME 9.2 fL (9.4-12.4); PLATELET COUNT,PLT 172 K/uL (150-400); WHITE BLOOD CELL COUNT,WBC 10.19 K/uL (3.9-11.3)
[2024-05-14 02:44] LABS: A/G RATIO 0.6 (0.9-1.6); ALBUMIN 1.9 g/dL (3.4-5.0); BILIRUBIN TOTAL 0.9 mg/dL (0.2-1.0); CALCIUM 7.6 mg/dL (8.5-10.1); CARBON DIOXIDE,CO2 24.7 mmol/L (21.0-32.0); CREATININE 1.5 mg/dL (0.8-1.3); EST CRCL DRUG DOSING (CG) 26.29 mL/min; POTASSIUM,K 3.3 mmol/L (3.5-5.1); PROTEIN TOTAL,TP 5.3 g/dL (6.4-8.2)
[2024-05-14] MEDS: Potassium Chloride 20 MEQ Tab.ER PO ONE (09:13)
[2024-05-14] MEDS: Ondansetron 4 MG/2 ML SDV IVPUSH PRN (16:45)
[2024-05-14] MEDS ORDERED: Benzonatate 100 MG Cap PO PRN (17:33)
[2024-05-14 21:02] LABS: BORDETELLA PARAPERT IS1001 Not Detected (Not Detected)
[2024-05-15] MEDS: cefTRIAXone 1 GM in Sodium Chloride 0.9% 50 ML IV SCH (10:47)
[2024-05-15 11:43] LABS: BASOPHILS ABSOLUTE AUTO 0.03 K/uL (0.00-0.20); BASOPHILS PERCENT AUTO 0.3 % (0.0-1.0); EOSINOPHILS ABSOLUTE AUTO 0.79 K/uL (0.00-0.45); EOSINOPHILS PERCENT AUTO 9.1 % (0.0-6.0); HEMATOCRIT 33.6 % (42.0-52.0); HEMOGLOBIN 11.7 g/dL (14.0-18.0); IMMATURE GRAN ABSOLUTE AUTO 0.16 K/uL (0.00-0.05); IMMATURE GRAN PERCENT AUTO 1.8 % (0.0-0.4); LYMPHOCYTES ABSOLUTE AUTO 0.88 K/uL (1.00-4.80); LYMPHOCYTES PERCENT AUTO 10.1 % (24.0-44.0); MEAN CORPUSCULAR HEMOGLOBIN 31.7 pg (28.0-32.0); MEAN CORPUSCULAR HGB CONC 34.8 g/dL (32.0-36.0); MEAN CORPUSCULAR VOLUME 91.1 fL (83.0-99.0); MEAN PLATELET VOLUME 9.2 fL (9.4-12.4); MONOCYTES ABSOLUTE AUTO 0.52 K/uL (0.00-0.80); NEUTROPHILS ABSOLUTE AUTO 6.31 K/uL (1.80-7.70); NEUTROPHILS PERCENT AUTO 72.7 % (41.0-71.0); PLATELET COUNT,PLT 167 K/uL (150-400); RED BLOOD CELL COUNT 3.69 M/uL (4.52-5.90); WHITE BLOOD CELL COUNT,WBC 8.69 K/uL (3.9-11.3)
[2024-05-15 12:14] LABS: EST CRCL DRUG DOSING (CG) 35.85 mL/min; MAGNESIUM 1.9 mg/dL (1.8-2.4); POTASSIUM,K 3.9 mmol/L (3.5-5.1)
[2024-05-15 12:30] LABS: A/G RATIO 0.6 (0.9-1.6); ALBUMIN 2.3 g/dL (3.4-5.0); BILIRUBIN TOTAL 0.7 mg/dL (0.2-1.0); CALCIUM 8.5 mg/dL (8.5-10.1); CREATININE 1.1 mg/dL (0.8-1.3); PHOSPHORUS 1.7 mg/dL (2.6-4.7); PROTEIN TOTAL,TP 6.3 g/dL (6.4-8.2); VANCOMYCIN RANDOM 7.8 ug/mL
[2024-05-15] MEDS: Phosphorus #1 250 MG Tab PO SCH (22:03)
[2024-05-16 06:17] LABS: BASOPHILS ABSOLUTE AUTO 0.03 K/uL (0.00-0.20); BASOPHILS PERCENT AUTO 0.4 % (0.0-1.0); EOSINOPHILS ABSOLUTE AUTO 0.82 K/uL (0.00-0.45); EOSINOPHILS PERCENT AUTO 9.9 % (0.0-6.0); HEMATOCRIT 29.2 % (42.0-52.0); HEMOGLOBIN 10.3 g/dL (14.0-18.0); IMMATURE GRAN ABSOLUTE AUTO 0.36 K/uL (0.00-0.05); IMMATURE GRAN PERCENT AUTO 4.3 % (0.0-0.4); LYMPHOCYTES ABSOLUTE AUTO 1.34 K/uL (1.00-4.80); LYMPHOCYTES PERCENT AUTO 16.1 % (24.0-44.0); MEAN CORPUSCULAR HEMOGLOBIN 31.6 pg (28.0-32.0); MEAN CORPUSCULAR HGB CONC 35.3 g/dL (32.0-36.0); MEAN CORPUSCULAR VOLUME 89.6 fL (83.0-99.0); MEAN PLATELET VOLUME 9.7 fL (9.4-12.4); MONOCYTES ABSOLUTE AUTO 0.59 K/uL (0.00-0.80); MONOCYTES PERCENT AUTO 7.1 % (0.0-8.0); NEUTROPHILS ABSOLUTE AUTO 5.18 K/uL (1.80-7.70); NEUTROPHILS PERCENT AUTO 62.2 % (41.0-71.0); PLATELET COUNT,PLT 171 K/uL (150-400); RED BLOOD CELL COUNT 3.26 M/uL (4.52-5.90); WHITE BLOOD CELL COUNT,WBC 8.32 K/uL (3.9-11.3)
[2024-05-16 06:38] LABS: A/G RATIO 0.6 (0.9-1.6); ALBUMIN 2.1 g/dL (3.4-5.0); BILIRUBIN TOTAL 0.5 mg/dL (0.2-1.0); CALCIUM 8.5 mg/dL (8.5-10.1); CARBON DIOXIDE,CO2 24.1 mmol/L (21.0-32.0); EST CRCL DRUG DOSING (CG) 39.43 mL/min; MAGNESIUM 1.8 mg/dL (1.8-2.4); POTASSIUM,K 3.5 mmol/L (3.5-5.1); PROTEIN TOTAL,TP 5.8 g/dL (6.4-8.2)
[2024-05-16] MEDS: Azithromycin 250 MG Tab PO ONE (08:39)
== END 2024-05-16 11:40 | DRG 871 ==
LOC: MW.ED 22:15 → MW.MS 05-13 01:05
PROVIDERS: ADMIT Internal Medicine; ATTEND Internal Medicine
DX: A41.9 Sepsis, unspecified organism (principal); J18.9 Pneumonia, unspecified organism; J96.01 Acute respiratory failure with hypoxia; N17.9 Acute kidney failure, unspecified; M62.82 Rhabdomyolysis; E87.20 Acidosis, unspecified; A08.4 Viral intestinal infection, unspecified; E86.0 Dehydration; R65.20 Severe sepsis without septic shock; Z66 Do not resuscitate; I10 Essential (primary) hypertension; Z79.899 Other long term (current) drug therapy; Z88.2 Allergy status to sulfonamides
CPT/HCPCS: 0240U; 36415; 70450; 71045; 74176; 80048; 80053; 80076; 80202; 81001; 83605; 83690; 83735; 83880; 84100; 84145; 84484; 85025; 85027; 87040; 87428; 87486; 87581; 87633; 87641; 87899; 93005; 94640; 93010; 99284; A9270-GY; J0456; J0696; J1644; J2405; J2543; J3371; J3490; J7030; J7050; J7620-GY